=== PATIENT | female | born 1975 | race Caucasian/White ===

== ENCOUNTER → 2020-09-30 07:53 | Outpatient (BNVA) | payer OTHER, SELFPAY | PROVIDERS: Visit Provider Advanced Practice Midwife | DX: Z76.89 Persons encountering health services in other specified circumstances (principal) ==

== ENCOUNTER 2021-10-24 07:58 | Outpatient (REF) | payer OTHER, SELFPAY ==
[2021-10-27 20:47] LABS: HPV mRNA E6/E7 rflx Not Detected (Not Detected)
== END 2021-10-24 07:59 | disposition home or self-care (01) ==
LOC: HO.LAB 07:58
PROVIDERS: PCP Internal Medicine; Visit Provider Advanced Practice Midwife
DX: Z01.411 Encounter for gynecological examination (general) (routine) with abnormal findings (principal); Z11.51 Encounter for screening for human papillomavirus (HPV); N88.8 Other specified noninflammatory disorders of cervix uteri
CPT/HCPCS: 87624; 88142

== ENCOUNTER 2021-11-07 13:54 | Outpatient (REF) | payer OTHER, SELFPAY | END 2021-11-07 13:55 | disposition home or self-care (01) | LOC: HO.LAB 13:54 | PROVIDERS: PCP Internal Medicine; Visit Provider Obstetrics & Gynecology | DX: N88.8 Other specified noninflammatory disorders of cervix uteri (principal) | CPT/HCPCS: 57454; 88305 ==

== ENCOUNTER → 2021-11-28 10:18 | Outpatient (BNVA) | payer OTHER, SELFPAY | PROVIDERS: Visit Provider Obstetrics & Gynecology ==

== ENCOUNTER 2022-03-20 10:42 | Outpatient (REF) | payer OTHER, SELFPAY ==
[2022-03-20 12:38] LABS: Erythrocyte Sedimentation Rate 5 MM/HR (0-20)
[2022-03-21 14:26] LABS: PTT (LAC) Screen 32 sec (< OR = 40)
[2022-03-22 21:25] LABS: Anti Nuclear Antibody Pattern Nuclear, Homogeneous; Anti Nuclear Antibody Screen POSITIVE (NEGATIVE); Anti Nuclear Antibody Titer 1:40 titer
[2022-03-23 12:37] LABS: Cardiolipin IgG Ab <2.0 GPL-U/mL; Cardiolipin IgM Ab <2.0 MPL-U/mL
[2022-03-27 21:21] LABS: Factor V Leiden NEGATIVE
== END 2022-03-20 10:43 | disposition home or self-care (01) ==
LOC: HO.LAB 10:42
PROVIDERS: PCP Internal Medicine; Visit Provider Psychiatry & Neurology Neurology
DX: I63.50 Cerebral infarction due to unspecified occlusion or stenosis of unspecified cerebral artery (principal)
CPT/HCPCS: 36415; 81241; 85597; 85613; 85652; 85730; 86038; 86039; 86147

== ENCOUNTER 2022-10-19 08:21 | Outpatient (REF) | payer OTHER, SELFPAY ==
--- NOTE | ~2022-10-19 | CT_ITS ---
EXAMINATION: CTA OF THE HEAD AND NECK CLINICAL INFORMATION: Prior infarction due to unspecified occlusion. Further evaluate. COMPARISON: None. TECHNIQUE: Test bolus sequences followed by intravenous administration 70 mL of Omnipaque 350. Helical imaging was performed in the axial plane from the mediastinum to the skull vertex. Delayed postcontrast imaging of the head was also performed. The data was processed at the cytotechnologist supervisor's workstation for generation of MIP sequences. Three-dimensional volume rendered reformatted images were also generated at an offline 3-D workstation. Stenoses are assessed in accordance with NASCET criteria unless otherwise indicated. Motion artifacts partially limit assessment. This CT examination was performed using dose optimization techniques as appropriate, variously including the following: *Automated exposure control *Adjustment of mA and/or kV according to patient size (this includes techniques or standardized protocols for targeted exams where dose is matched to indication/reason for exam; i.e. extremities or head) *Use of iterative reconstruction technique DLP: 2262 mGy-cm. FINDINGS: CT head: There is no evidence of acute intracranial hemorrhage or territorial infarction. There is no loss of montes to white matter differentiation. No abnormal mass effect or midline shift is seen. No extra-axial fluid collections are identified. There is no abnormal enhancement. The ventricles are normal in size. There is encephalomalacia from a focal chronic infarct involving the right frontal lobe superior to the sylvian fissure. The osseous structures and soft tissues are normal. The paranasal sinuses are well aerated. [id number] leftward nasal septal deviation with prominent nasal septal spurring impressing upon the left inferior turbinate. There is fluid opacifying the left mastoid air cells. The left middle ear cavity is aerated. The right mastoid air cells are clear. The nasopharyngeal soft tissues appear normal. CTA NECK: The imaged aortic arch and origins of the great vessels are relatively normal with retroesophageal aberrant origin of the right subclavian artery. The common carotid arteries are widely patent. The carotid bifurcations are normal. The cervical internal carotid arteries are normal. The vertebral arteries opacify normally and are of normal caliber. The right vertebral artery is developmentally hypoplastic. The soft tissues of the neck are unremarkable. There is moderate disc space narrowing with mild endplate spurring and a disc-osteophyte complex at the C6-C7 level. Milder spondylosis evident at the C5-C6 level as well. Mild subsegmental atelectatic changes noted in the lungs. CTA HEAD: The intradural vertebral arteries and basilar artery are normal. The posterior cerebral arteries are widely patent. The internal carotid arteries are of normal caliber. The MIKE and MCA vascular complexes bilaterally are normal. The venous sinuses opacify normally. CT/CT angio head neck IMPRESSION: Slightly limited examination with motion artifacts along the upper convexities to the vertex. Otherwise, normal CT angiogram of the head and neck. Focal encephalomalacia in the lateral aspect of the right frontal lobe superior to the sylvian fissure. No abnormal enhancement. Lower cervical spondylosis. Nonspecific fluid opacification of the left mastoid air cells. Grossly normal appearance of the nasopharyngeal soft tissues.
[2022-10-19] MEDS: iohexoL 350 MG/ML 100 ML INFUS..BTL 70 ML IV (09:29)
== END 2022-10-19 08:22 | disposition home or self-care (01) ==
LOC: HO.CT 08:21
PROVIDERS: PCP Internal Medicine; Visit Provider Psychiatry & Neurology Neurology
DX: I63.50 Cerebral infarction due to unspecified occlusion or stenosis of unspecified cerebral artery (principal)
CPT/HCPCS: 70496; 70498; Q9967

== ENCOUNTER → 2022-11-29 14:27 | Outpatient (BNVA) | payer OTHER, SELFPAY | PROVIDERS: PCP Internal Medicine; Visit Provider Obstetrics & Gynecology | DX: Z13.89 Encounter for screening for other disorder (principal) ==

== ENCOUNTER → 2023-01-22 07:32 | Outpatient (BNVA) | payer OTHER, SELFPAY | PROVIDERS: PCP Internal Medicine; Visit Provider Physician Assistant | DX: Z13.89 Encounter for screening for other disorder (principal) ==

== ENCOUNTER 2023-06-04 07:52 | Day surgery (SDC) | payer OTHER, SELFPAY ==
[2023-05-22 12:07] VITALS: BP 144/76; PULSE 76; RESP 16; O2SAT 99; BMI 28.2
--- NOTE | 2023-06-03 11:55 | P.CONAN_ITS ---
Documented by User: Aleshia Mayfield NP 06/03/23 11:57 HPI - Anesthesia Eval Consult details Narrative: 47yo F for Colonoscopy Plavix for hx CVA PMFSH Active Problems Active Problems: All Active Problems (Updated 05/22/23 @ 12:07 by Yessenia Dupont RN) Encounter for annual routine gynecological examination (Acute) Cervical cyst (Acute) Abnormal cervix finding (Acute) Well woman exam (Acute) Family planning (Acute) Encounter for screening colonoscopy (Acute) Pulmonary valve stenosis (Acute) Past Medical History Medical History (Updated 06/04/23 @ 08:09 by Kamila Tinsley RN) Environmental allergies History of stroke Migraine with aura Miscarriage Murmur, cardiac Pulmonary valve stenosis Family History Family History Paternal Aunt Uterine cancer Father No problems noted. Mother Dementia Rheumatic arteritis Hyperlipidemia Surgical History Surgical History History of cholecystectomy Social History Social History (Updated 01/22/23 @ 07:57 by Shirley Kim PA-C) Household Members Other:: single Are you a primary long term care administrator to a significant other at home: No Do you presently have visiting nurse or other home services: No Alcohol intake: never Patient Tobacco Use Status: Never used Tobacco Use of substances other than those prescribed or required for medical reasons: No Have you been hit, kicked, punched, or otherwise hurt by someone within the past year? If so, by whom?: No Are you DNR?: No Advance Directives: No Advance Directives Information Provided: Yes Advance Directives on File: No Recently lost weight without trying: No Nutrition Risks: No Nutritional Risk Patient : No FDLMP: 05/20/2023 : No Poor oral hygiene: No Current occupational status: employed Sexual orientation: Straight/Heterosexual Gender identity: Female Meds Allergies Allergy/AdvReac Type Severity Reaction Status Date / Time doxycycline Allergy lip Verified 05/22/23 12:06 swelling Home Medications Medication Instructions Recorded Confirmed Last Taken Type betamethasone, augmented 0.05 % 1 appl topical BID 10/24/21 06/04/23 Unknown History topical cream aspirin 81 mg capsule 81 mg PO DAILY 11/29/22 05/22/2305/28/23 History bee pollen ea PO 11/29/22 Unknown History lactobacillus combination no.9 4 PO DAILY 01/22/23 Unknown History billion cell capsule (Adult 50 Plus Probiotic) ascorbic acid (vitamin C) 500 mg 500 mg PO DAILY 05/22/23 05/22/23 Unknown History tablet (Vitamin C) cholecalciferol (vitamin D3) 1,250 1,250 mcg PO QMONTH 05/22/23 05/22/23 Unknown History mcg (50,000 unit) tablet clopidogrel 75 mg tablet 75 mg PO DAILY 05/22/23 05/22/23 05/28/23 History multivitamin 1 tab PO DAILY 05/22/23 05/22/23 Unknown History Exam Exam Date and Time: June 03, 2023 115 Height,Weight and Vital Signs: Height 5 ft 3 in Weight 72.121 kg Last Vital Signs Pulse 76 05/22/23 12:07 Resp 16 05/22/23 12:07 BP 144/76 H 05/22/23 12:07 Pulse Ox 99 05/22/23 12:07 O2 Del Method Room Air 05/22/23 12:07 Assessment and Plan Assessment Anesthesia Assessment: Chart Reviewed Documented by User: Rita Reyes MD 06/04/23 09:05 [facility] Past Medical History Medical History (Updated 06/04/23 @ 08:09 by Kamila Tinsley RN) Environmental allergies History of stroke Migraine with aura Miscarriage Murmur, cardiac Pulmonary valve stenosis Family History Family History Paternal Aunt Uterine cancer Father No problems noted. Mother Dementia Rheumatic arteritis Hyperlipidemia Family history of problems with anesthesia: No Surgical History Surgical History History of cholecystectomy History of Problems with Anesthesia: No Social History Social History (Updated 01/22/23 @ 07:57 by Shirley Kim PA-C) Household Members Other:: single Are you a primary long term care administrator to a significant other at home: No Do you presently have visiting nurse or other home services: No Alcohol intake: never Patient Tobacco Use Status: Never used Tobacco Use of substances other than those prescribed or required for medical reasons: No Have you been hit, kicked, punched, or otherwise hurt by someone within the past year? If so, by whom?: No Are you DNR?: No Advance Directives: No Advance Directives Information Provided: Yes Advance Directives on File: No Recently lost weight without trying: No Nutrition Risks: No Nutritional Risk Patient : No FDLMP: 05/20/2023 : No Poor oral hygiene: No Current occupational status: employed Sexual orientation: Straight/Heterosexual Gender identity: Female Meds Allergies Allergy/AdvReac Type Severity Reaction Status Date / Time doxycycline Allergy lip Verified 05/22/23 12:06 swelling Home Medications Medication Instructions Recorded Confirmed Last Taken Type betamethasone, augmented 0.05 % 1 appl topical BID 10/24/21 06/04/23 Unknown History topical cream aspirin 81 mg capsule 81 mg PO DAILY 11/29/22 05/22/23 05/28/23 History bee pollen ea PO 11/29/22 Unknown History lactobacillus combination no.9 4 PO DAILY 01/22/23 Unknown History billion cell capsule (Adult 50 Plus Probiotic) ascorbic acid (vitamin C) 500 mg 500 mg PO DAILY 05/22/23 05/22/23 Unknown History tablet (Vitamin C) cholecalciferol (vitamin D3) 1,250 1,250 mcg PO QMONTH 05/22/23 05/22/23 Unknown History mcg (50,000 unit) tablet clopidogrel 75 mg tablet 75 mg PO DAILY 05/22/23 05/22/23 05/28/23 History multivitamin 1 tab PO DAILY 05/22/23 05/22/23 Unknown History Exam Airway Mallampati Class: I TM Dist: >3cm Neck ROM: Full Loose/Missing/Broken Teeth: No Heart: rr Lungs: cta Assessment and Plan Assessment Anesthesia Assessment: Anesthesia Plan Discussed Final Anesthetic Review Family History of Problems with Anesthesia: No History of Problems with Anesthesia: No NPO: Yes ASA Class: I Final Preanesthetic Review: No Changes in Pt Med Stat and Consent Obtained/Reviewed Patient Risk: Low Procedure Risk: Low Anesthetic Plan Anesthetic Plan: MAC: Disposition: Standard PACU
--- NOTE | 2023-06-04 08:24 | MHC.SHP ---
Pre-Procedural Eval Section A Date of Service: 06/04/23 The patient is an INPATIENT: No The History & Physical has been completed within 30 days and I have reviewed it.: No Section B Chief Complaint: screening Relevant Family History (Specify if Yes): Yes Relevant Social History: None Present Medications: see Short Stay Collaborative assessment Medical History: Significant History (History of stroke Migraine with aura Pulmonary valve stenosis) History of Previous Operations: Relevant previous surgery/procedure and date(s) (History of cholecystectomy) Allergies: Allergies Allergy/AdvReac Type Severity Reaction Status Date / Time doxycycline Allergy lip Verified 05/22/23 12:06 swelling Review of Systems Sugical H&P ROS: Negative: Constitution, Cardiovascular, Respiratory and Gastrointestinal Exam Surgical H&P Exam: Normal: Heart, Normal: Lungs, Normal: Extremities and Normal: Abdomen Plan Diagnosis/Plan: Unchanged I have reviewed the history and physical and performed a pertinent physical examination on my patient. No changes have occurred unless specified. Time Spent With Patient Time: Total time managing care of this patient today ____ minutes.
[2023-06-04 08:28] VITALS: BP 136/63; PULSE 65; RESP 16; TEMP 36.9; O2SAT 99
[2023-06-04] MEDS: Lactated Ringers 1,000 ML 100 ML IVCONT (08:34)
[2023-06-04 08:41] LABS: UPreg QC Valid YES; Urine Pregnancy NEGATIVE (NEGATIVE)
--- NOTE | 2023-06-04 09:21 | W.PM.OPN ---
Operative Note Operative Note Date of Service: 06/04/23 Narrative: COLONOSCOPY TILL CECUM Pre-op diagnosis: Colon cancer screening (1st colonoscopy), FH of colon polyps (sister at age 50 yrs) Post-op diagnosis:?Diverticulosis, hemorrhoids Endoscopist:? Denia Petit MD Anesthesia:?MAC Consent: Indications for the procedure and potential complications of bleeding, perforation, reaction to medications and missed diagnosis were discussed with the patient and informed consent was obtained. Instrument: Olympus PCF H 190 L variable stiffness pediatric colonoscope Monitoring: Vital signs and clinical assessment, intermittent blood pressure monitoring, continuous EKG monitoring, Pulse oximetry and Carbon Dioxide monitoring were done throughout the procedure. Please see anesthesia flowsheet. Colon withdrawl time was 17 minutes. Procedure: The patient was placed in the left lateral decubitis position and pre-procedure medications were administered. After a digital rectal examination of the ano-rectum, the video colonoscope was inserted into the rectum and advanced through the colon to the cecum. The colonoscope was slowly withdrawn in a retrograde panoramic fashion and the colon mucosa was carefully examined including a retroflexed view of the rectum. Findings and interventions are described below. Procedure Difficulty: Without difficulty Findings: Terminal Ileum: Not evaluated Cecum: Normal Ascending Colon: Normal Transverse Colon: Normal Descending Colon: Normal Sigmoid Colon: Moderate diverticulosis Rectum: Normal Ano-rectum: Small internal hemorrhoids Colon preparation: Excellent Impression and Post Procedure Diagnosis: Colonoscopy Findings: No polyps were detected Moderate diverticulosis seen in the sigmoid colon Small hemorrhoids on retroflexed exam. Plan: Patient has an appointment on 06/13/23 in the GI Clinic with MURPHY Sheehan. Repeat Colonoscopy in 5 years due to family hx of colon polyps (sister at age 50 who is on a 3 year colonoscopy schedule). Above findings were reviewed with the patient and diverticulosis handout was given in the discharge area
[2023-06-04 10:10] VITALS: BP 106/53; PULSE 54; RESP 18; TEMP 36.1; O2SAT 97
[2023-06-04 10:27] VITALS: BP 124/50; PULSE 61; RESP 18; TEMP 36.1; O2SAT 100
== END 2023-06-04 11:20 | disposition home or self-care (01) ==
PROVIDERS: Nurse Practitioner; PCP Nurse Practitioner Family; Visit Provider Internal Medicine Gastroenterology
PROC: 0DJD8ZZ Inspection of Lower Intestinal Tract, Via Natural or Artificial Opening Endoscopic (ICD-10-PCS; CPT 45378; principal; 2023-06-04 09:20)
DX: Z12.11 Encounter for screening for malignant neoplasm of colon (principal); K57.30 Diverticulosis of large intestine without perforation or abscess without bleeding; K64.8 Other hemorrhoids; Z83.71 Family history of colonic polyps; Z90.49 Acquired absence of other specified parts of digestive tract; Z86.73 Personal history of transient ischemic attack (TIA), and cerebral infarction without residual deficits; Z79.82 Long term (current) use of aspirin; Z79.899 Other long term (current) drug therapy; Z79.02 Long term (current) use of antithrombotics/antiplatelets
CPT/HCPCS: 45378; 81025

== ENCOUNTER → 2023-06-04 07:52 | Outpatient (BNV) | payer OTHER, SELFPAY | PROVIDERS: PCP Nurse Practitioner Family; Visit Provider Internal Medicine Gastroenterology | DX: Z12.11 Encounter for screening for malignant neoplasm of colon (principal); K57.30 Diverticulosis of large intestine without perforation or abscess without bleeding | CPT/HCPCS: 45378 ==

== ENCOUNTER 2023-12-05 13:32 | Outpatient (AMB) | payer OTHER, SELFPAY ==
--- NOTE | 2023-12-05 14:14 | A.OFFVIS_ITS ---
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 No complaints. Last Pap/HPV was negative in 11/07 Last Mammogram was in 10/10 at [facility] [place] according to patient is was negative Last Colonoscopy was in 06/09, the recommendation was to repeat in 5 years [facility] Medical History Migraines Stroke Miscarriage Murmur, cardiac Environmental allergies Pulmonary valve stenosis Migraine with aura History of stroke Surgical History Hx of colonoscopy History of cholecystectomy Family History Paternal Aunt Uterine cancer Father No problems noted. Mother Dementia Rheumatic arteritis Hyperlipidemia Social History Household Members Other:: single Are you a primary child care associate to a significant other at home: No Do you presently have visiting nurse or other home services: No Alcohol intake: never Comment: aware of trip hazard Patient Tobacco Use Status: Never used Tobacco Current occupational status: employed Sexual orientation: Straight/Heterosexual Gender identity: Female Female Reproductive History Menstrual Age of Menarche: 10 Duration of menses: 3-5 days Date of last menstrual period: 11/29/23 Date of last pap smear: 08/24/21 (neg pap and hpv) Review of Systems Const All systems reviewed & are unremarkable except as noted in HPI and below Card Reports as per HPI Resp Reports as per HPI GI Reports as per HPI and Reports no additional complaints Reports as per HPI Physical Exam Const General: cooperative, healthy appearing and comfortable Chest Chest palpation & inspection: normal inspection of the chest and normal palpation of entire chest wall Breast/axilla inspection: normal inspection of the breasts and normal inspection of the axillae Breast/axilla palpation: normal palpation of the breasts, normal palpation of the axillae and no axillary lymphadenopathy Resp Effort & Inspection: normal respiratory effort Auscultation: clear to auscultation bilaterally Percussion: percussion normal Cardio Palpation: normal PMI Rate: regular rate Rhythm: regular rhythm Heart sounds: no murmurs and no rubs Peripheral pulses: Peripheral pulses 2+ throughout GI Inspection: Yes normal to inspection Palpation (GI): Soft to palpation, nontender, no guarding, not rigid and No hepatosplenomegaly present Percussion: Yes normal to percussion Auscultation: normal bowel sounds Rectal Exam - Female: deferred General: Yes bladder normal to palpation External Female Exam: No lesion Speculum Exam - Vagina: normal appearance of the vagina, normal palpation, normal vaginal discharge and not erythematous Speculum Exam - Cervix: normal appearance of the cervix and normal palpation Bimanual exam- vagina & uterus: normal bimanual exam, normal palpation, uterine size normal, bladder normal to palpation, consistency normal and normal palpation Bimanual Exam- Adnexa, other: normal adnexae, no masses and no tenderness Assessment & Plan Assessment & Plan (1) Well woman exam: Code(s): Z01.419 - Encounter for gynecological examination (general) (routine) without abnormal findings Plan: Co testing not indicated this. Counseled the patient about the recommended dietary allowance of 1200 mg of Calcium & 600 IU of vitamin D. Instructions given to patient to schedule next screen Mammogram in 10/11. The patient was instructed to perform monthly self-breast exams and schedule annual exam in a year. All questions answered and the patient verbalized understanding. Coding Level of Care Code Est Pt Prev Care 40-64y(60779) Diagnoses Well woman exam Z01.419
[2023-12-05 14:17] VITALS: BP 122/84; BMI 28.7
== END 2023-12-05 14:32 | disposition home or self-care (01) ==
PROVIDERS: Visit Provider Obstetrics & Gynecology
DX: Z01.419 Encounter for gynecological examination (general) (routine) without abnormal findings (principal)
CPT/HCPCS: 99396

== ENCOUNTER → 2023-12-05 13:32 | Outpatient (BNVA) | payer OTHER, SELFPAY | PROVIDERS: Visit Provider Obstetrics & Gynecology ==